=== PATIENT | female | born 1995 | race Caucasian/White ===

== ENCOUNTER 2016-04-17 11:16 | Emergency (ER) | payer OTHER ==
[~2016-04-17] VITALS: Ht 165.1 cm; Wt 61.4 kg
[~2016-04-17 11:16] MED LIST: ALBUTEROL0.09 MG/A1 IH; ANASPAZ; ANUSOL-HC SUPPO25 MG RC; ATARAX 25MG25 MG/TAB PO; BACTRIM DS 8001 TAB PO; BENTYL 10MG10 MG/CAP; BIRTH CONTROL; BIRTH CONTROL PILL; CALCIUM ANTACI500 MG; CEFTIN 250250 MG/TAB PO; CELEXA 20MG20 MG/TAB PO; DELSYM COU30 MG/5 ML PO; KLONOPIN 0.5MG0.5 MG PO; KLONOPIN WAFER0.5 MG PO; LORATADINE5 MG/5 ML PO; MICROGESTIN 1/21 TAB PO; NORCO 325 MG-51 TAB PO; PRENATAL1 TA2 PO; PREVACID 30MG30 M1 PO; PREVACID SOLUTA30 M2 PO; PROVENTIL0.09 MG/A1 IH; PULMICORT0.5 MG/21 IH; PYRIDIUM200 M1 PO; SINGULAIR; ZOFRAN ODT4 MG PO
[2016-04-17 11:23] VITALS: TEMP 99.3
[2016-04-17 12:26] LABS: BASO % 0.2 % (0.0-2.0); EOS % 0.1 % (0-4.0); GRAN # 11.5 (1.4-6.5); GRAN % 92.8 % (42.2-75.2); HEMATOCRIT 44.2 % (35.0-45.0); HEMOGLOBIN 14.9 g/dl (12.0-15.0); LYMPH # 0.3 (1.2-3.4); LYMPH % 2.3 % (20.0-51.0); MEAN CELL VOLUME 86 fl (80.0-95.0); MEAN CORPUSCULAR HEMOGLOBIN 29 pg (26.0-32.0); MEAN CORPUSCULAR HGB CONC 34 g/dl (33.0-37.0); MEAN PLATELET VOLUME 9.7 fl (7.4-10.4); MONO # 0.5 (0.1-0.6); MONO % 4.2 % (1.7-9.3); PLATELET COUNT 275 K/mm3 (130-400); RED BLOOD COUNT 5.15 M/mm3 (4.10-5.30); REDCELL DISTRIBUTION WIDTH-CV 12.6 % (11.5-14.5); WHITE BLOOD COUNT 12.4 K/mm3 (4.8-10.8)
[2016-04-17 12:33] LABS: ALBUMIN 4.7 gm/dL (3.5-5.0); C-REACTIVE PROTEIN 1.2 mg/dL (0.0-0.9); CALCIUM 9.6 mg/dL (8.4-10.2); CREATININE, serum 0.65 mg/dL (0.52-1.25); POTASSIUM 3.8 mmol/L (3.4-5.0); TOTAL PROTEIN 8.2 gm/dL (6.4-8.2)
[2016-04-17 12:41] LABS: PH 7 (5-8); URINE APPEARANCE Clear; URINE BACTERIA Rare /hpf; URINE BILIRUBIN Negative (NEGATIVE); URINE BLOOD Negative (NEGATIVE); URINE COLOR Yellow; URINE GLUCOSE Negative (NEGATIVE); URINE KETONE 2+ (NEGATIVE); URINE RBC 0-2 /hpf; URINE UROBILINOGEN Negative (NEGATIVE)
[2016-04-17] MEDS ORDERED: ZOFRAN 4MG T4 MG/TAB PO (13:13)
[2016-04-17 13:27] VITALS: BP 124/84; PULSE 80
== END 2016-04-17 13:29 | disposition home or self-care (01) ==
LOC: COL.ER 11:16
PROVIDERS: Emergency Medicine
DX: R10.31 Right lower quadrant pain (principal); R10.11 Right upper quadrant pain; R11.10 Vomiting, unspecified; R19.7 Diarrhea, unspecified
CPT/HCPCS: J2405; J7030; Q9967

== ENCOUNTER 2016-09-06 08:43 | Emergency (ER) | payer SELFPAY ==
[~2016-09-06] VITALS: Ht 172.7 cm; Wt 77.3 kg
[~2016-09-06 08:43] MED LIST changes: +ZOFRAN 4MG T4 MG/TAB PO
[2016-09-06 08:46] VITALS: BP 148/86; PULSE 90; TEMP 98.2
[2016-09-06 09:19] LABS: BASO % 0.3 % (0.0-2.0); EOS # 0.1 (0.0-0.7); EOS % 0.8 % (0-4.0); GRAN # 4.1 (1.4-6.5); GRAN % 69.8 % (42.2-75.2); HEMOGLOBIN 13.9 g/dl (12.0-15.0); LYMPH # 1.1 (1.2-3.4); LYMPH % 18.8 % (20.0-51.0); MEAN CELL VOLUME 85 fl (80.0-95.0); MEAN CORPUSCULAR HEMOGLOBIN 29 pg (26.0-32.0); MEAN CORPUSCULAR HGB CONC 35 g/dl (33.0-37.0); MEAN PLATELET VOLUME 9.5 fl (7.4-10.4); MONO # 0.6 (0.1-0.6); PLATELET COUNT 291 K/mm3 (130-400); RED BLOOD COUNT 4.72 M/mm3 (4.10-5.30); WHITE BLOOD COUNT 5.9 K/mm3 (4.8-10.8)
[2016-09-06 09:28] LABS: ADJUSTED CALCIUM 8.9 mg/dL (8.4-10.2); ALBUMIN 4.5 gm/dL (3.5-5.0); BILIRUBIN,TOTAL 0.7 mg/dL (0.0-1.0); CALCIUM 9.3 mg/dL (8.4-10.2); CREATININE, serum 0.64 mg/dL (0.52-1.25); POTASSIUM 3.6 mmol/L (3.4-5.0); TOTAL PROTEIN 7.4 gm/dL (6.4-8.2)
[2016-09-06 10:03] LABS: PH 5 (5-8); URINE APPEARANCE Hazy; URINE BACTERIA None Seen /hpf; URINE BILIRUBIN Negative (NEGATIVE); URINE BLOOD Negative (NEGATIVE); URINE COLOR Yellow; URINE GLUCOSE Negative (NEGATIVE); URINE KETONE 2+ (NEGATIVE); URINE RBC 0-2 /hpf; URINE UROBILINOGEN Negative (NEGATIVE); URINE WBC 0-2 /hpf
== END 2016-09-06 10:33 | disposition home or self-care (01) ==
LOC: COL.ER 08:43
PROVIDERS: Physician Assistant
DX: M79.652 Pain in left thigh (principal); M79.651 Pain in right thigh; F31.9 Bipolar disorder, unspecified

== ENCOUNTER 2016-09-25 12:33 | Emergency (ER) | payer SELFPAY ==
[~2016-09-25] VITALS: Ht 165.1 cm; Wt 68.2 kg
[2016-09-25 12:37] VITALS: BP 129/85; TEMP 98.8
[2016-09-25 13:21] LABS: AMPHETAMINE URINE NEGATIVE; BARBITURATES URINE NEGATIVE; BENZODIAZEPINES URINE NEGATIVE; BUPRENORPHINE URINE NEGATIVE; METHADONE URINE NEGATIVE; OPIATES URINE NEGATIVE; OXYCODONE URINE NEGATIVE; PHENCYCLIDINE URINE NEGATIVE; PROPOXYPHENE URINE NEGATIVE; THC CANNABINOIDS URINE NEGATIVE
[2016-09-25 13:35] LABS: BASO % 0.3 % (0.0-2.0); EOS % 0.6 % (0-4.0); GRAN # 4.1 (1.4-6.5); GRAN % 66.4 % (42.2-75.2); HEMATOCRIT 40.1 % (35.0-45.0); HEMOGLOBIN 13.6 g/dl (12.0-15.0); LYMPH # 1.4 (1.2-3.4); LYMPH % 22.9 % (20.0-51.0); MEAN CELL VOLUME 87 fl (80.0-95.0); MEAN CORPUSCULAR HEMOGLOBIN 29 pg (26.0-32.0); MEAN CORPUSCULAR HGB CONC 34 g/dl (33.0-37.0); MEAN PLATELET VOLUME 9.6 fl (7.4-10.4); MONO # 0.6 (0.1-0.6); MONO % 9.5 % (1.7-9.3); PLATELET COUNT 272 K/mm3 (130-400); RED BLOOD COUNT 4.62 M/mm3 (4.10-5.30); REDCELL DISTRIBUTION WIDTH-CV 12.7 % (11.5-14.5); WHITE BLOOD COUNT 6.2 K/mm3 (4.8-10.8)
[2016-09-25 13:38] LABS: ADJUSTED CALCIUM 9.1 mg/dL (8.4-10.2); ALANINE AMINOTRANSFERASE 20 U/L (9-52); ALBUMIN 4.6 gm/dL (3.5-5.0); ALKALINE PHOSPHATASE 60 U/L (50-136); ANION GAP 12 mmol/L (7-16); BILIRUBIN,TOTAL 0.7 mg/dL (0.0-1.0); BLOOD UREA NITROGEN 9 mg/dL (7-17); CALCIUM 9.6 mg/dL (8.4-10.2); CARBON DIOXIDE 24 mmol/L (22-30); CHLORIDE 104 mmol/L (98-107); CREATININE, serum 0.76 mg/dL (0.52-1.25); GLUCOSE 87 mg/dL (74-106); SODIUM 140 mmol/L (137-145); TOTAL PROTEIN 7.6 gm/dL (6.4-8.2)
[2016-09-25 13:40] LABS: ACETAMINOPHEN < 10 ug/mL (10-30); SALICYLATE < 1.0 mg/dL
[2016-09-25 16:20] VITALS: PULSE 80
== END 2016-09-25 16:21 | disposition home or self-care (01) ==
LOC: COL.ER 12:33
PROVIDERS: Nurse Practitioner
DX: F41.1 Generalized anxiety disorder (principal); R45.851 Suicidal ideations; F32.9 Major depressive disorder, single episode, unspecified; J45.909 Unspecified asthma, uncomplicated; F43.10 Post-traumatic stress disorder, unspecified

== ENCOUNTER 2016-10-27 20:50 | Emergency (ER) | payer SELFPAY ==
[~2016-10-27] VITALS: Ht 172.7 cm; Wt 59.1 kg
[2016-10-27 20:51] VITALS: TEMP 99.1
[2016-10-27 21:51] LABS: BASO % 0.3 % (0.0-2.0); EOS % 0.7 % (0-4.0); GRAN # 3.6 (1.4-6.5); GRAN % 60.8 % (42.2-75.2); HEMATOCRIT 38.9 % (35.0-45.0); HEMOGLOBIN 13.3 g/dl (12.0-15.0); LYMPH # 1.8 (1.2-3.4); LYMPH % 30.1 % (20.0-51.0); MEAN CELL VOLUME 87 fl (80.0-95.0); MEAN CORPUSCULAR HEMOGLOBIN 30 pg (26.0-32.0); MEAN CORPUSCULAR HGB CONC 34 g/dl (33.0-37.0); MEAN PLATELET VOLUME 9.5 fl (7.4-10.4); MONO # 0.5 (0.1-0.6); MONO % 7.9 % (1.7-9.3); PLATELET COUNT 287 K/mm3 (130-400); RED BLOOD COUNT 4.48 M/mm3 (4.10-5.30); REDCELL DISTRIBUTION WIDTH-CV 12.6 % (11.5-14.5)
[2016-10-27 21:54] LABS: PH 5 (5-8); SQUAMOUS EPITHELIAL 0-2 /hpf; URINE APPEARANCE Hazy; URINE BACTERIA Rare /hpf; URINE BILIRUBIN Negative (NEGATIVE); URINE BLOOD Negative (NEGATIVE); URINE COLOR Yellow; URINE GLUCOSE Negative (NEGATIVE); URINE KETONE Negative (NEGATIVE); URINE RBC 0-2 /hpf; URINE UROBILINOGEN Negative (NEGATIVE)
[2016-10-27 21:59] LABS: AMPHETAMINE URINE NEGATIVE; BARBITURATES URINE NEGATIVE; BENZODIAZEPINES URINE NEGATIVE; BUPRENORPHINE URINE NEGATIVE; METHADONE URINE NEGATIVE; OPIATES URINE NEGATIVE; OXYCODONE URINE NEGATIVE; PHENCYCLIDINE URINE NEGATIVE; PROPOXYPHENE URINE NEGATIVE; THC CANNABINOIDS URINE NEGATIVE
[2016-10-27 22:02] LABS: ADJUSTED CALCIUM 8.9 mg/dL (8.4-10.2); ALANINE AMINOTRANSFERASE 26 U/L (9-52); ALBUMIN 4.7 gm/dL (3.5-5.0); ALKALINE PHOSPHATASE 53 U/L (50-136); BILIRUBIN,TOTAL 0.5 mg/dL (0.0-1.0); BLOOD UREA NITROGEN 7 mg/dL (7-17); CALCIUM 9.5 mg/dL (8.4-10.2); CARBON DIOXIDE 23 mmol/L (22-30); CHLORIDE 105 mmol/L (98-107); CREATININE, serum 0.77 mg/dL (0.52-1.25); GLUCOSE 90 mg/dL (74-106); POTASSIUM 3.8 mmol/L (3.4-5.0); TOTAL PROTEIN 7.5 gm/dL (6.4-8.2)
[2016-10-27 22:03] LABS: ACETAMINOPHEN < 10 ug/mL (10-30); SALICYLATE < 1.0 mg/dL; SODIUM 133 mmol/L (137-145)
[2016-10-27 22:04] LABS: ANION GAP 5 mmol/L (7-16)
[2016-10-28 00:21] VITALS: BP 122/76; PULSE 92
== END 2016-10-28 00:21 | disposition home or self-care (01) ==
LOC: COL.ER 20:50
PROVIDERS: Emergency Medicine
DX: F32.9 Major depressive disorder, single episode, unspecified (principal); F41.9 Anxiety disorder, unspecified; R45.851 Suicidal ideations

== ENCOUNTER 2016-11-20 15:57 | Emergency (ER) | payer SELFPAY ==
[~2016-11-20] VITALS: Ht 165.1 cm; Wt 73.7 kg
[2016-11-20 16:01] VITALS: TEMP 98.6
[2016-11-20 17:55] LABS: BASO % 0.2 % (0.0-2.0); EOS # 0.1 (0.0-0.7); EOS % 0.7 % (0-4.0); GRAN # 5.7 (1.4-6.5); GRAN % 70.7 % (42.2-75.2); HEMATOCRIT 40.4 % (35.0-45.0); HEMOGLOBIN 13.5 g/dl (12.0-15.0); LYMPH # 1.7 (1.2-3.4); LYMPH % 20.5 % (20.0-51.0); MEAN CELL VOLUME 88 fl (80.0-95.0); MEAN CORPUSCULAR HEMOGLOBIN 30 pg (26.0-32.0); MEAN CORPUSCULAR HGB CONC 33 g/dl (33.0-37.0); MEAN PLATELET VOLUME 9.6 fl (7.4-10.4); MONO # 0.6 (0.1-0.6); MONO % 7.7 % (1.7-9.3); PLATELET COUNT 293 K/mm3 (130-400); RED BLOOD COUNT 4.58 M/mm3 (4.10-5.30); REDCELL DISTRIBUTION WIDTH-CV 12.7 % (11.5-14.5); WHITE BLOOD COUNT 8.1 K/mm3 (4.8-10.8)
[2016-11-20 17:59] LABS: PH 5 (5-8); SQUAMOUS EPITHELIAL 0-2 /hpf; URINE APPEARANCE Clear; URINE BACTERIA None Seen /hpf; URINE BILIRUBIN Negative (NEGATIVE); URINE BLOOD Negative (NEGATIVE); URINE COLOR Yellow; URINE GLUCOSE Negative (NEGATIVE); URINE KETONE Negative (NEGATIVE); URINE RBC 0-2 /hpf; URINE UROBILINOGEN Negative (NEGATIVE); URINE WBC 0-2 /hpf
[2016-11-20 18:19] LABS: ADJUSTED CALCIUM 8.8 mg/dL (8.4-10.2); ALANINE AMINOTRANSFERASE 25 U/L (9-52); ALBUMIN 4.5 gm/dL (3.5-5.0); ALKALINE PHOSPHATASE 49 U/L (50-136); ANION GAP 10 mmol/L (7-16); BILIRUBIN,TOTAL 0.5 mg/dL (0.0-1.0); BLOOD UREA NITROGEN 7 mg/dL (7-17); CALCIUM 9.2 mg/dL (8.4-10.2); CARBON DIOXIDE 26 mmol/L (22-30); CHLORIDE 104 mmol/L (98-107); CREATININE, serum 0.73 mg/dL (0.52-1.25); GLUCOSE 67 mg/dL (74-106); POTASSIUM 3.5 mmol/L (3.4-5.0); SODIUM 140 mmol/L (137-145); TOTAL PROTEIN 7.4 gm/dL (6.4-8.2)
[2016-11-20 18:20] LABS: C-REACTIVE PROTEIN < 0.5 mg/dL (0.0-0.9)
[2016-11-20 18:50] VITALS: BP 122/68; PULSE 80
== END 2016-11-20 18:50 | disposition home or self-care (01) ==
LOC: COL.ER 15:57
PROVIDERS: Nurse Practitioner
DX: R10.30 Lower abdominal pain, unspecified (principal)

== ENCOUNTER 2016-12-07 01:37 | Emergency (ER) | payer SELFPAY ==
[~2016-12-07] VITALS: Ht 165.1 cm; Wt 74.1 kg
[2016-12-07 01:39] VITALS: BP 137/79; TEMP 98.1
[2016-12-07 02:36] LABS: PH 7 (5-8); URINE APPEARANCE Cloudy; URINE BACTERIA Rare /hpf; URINE BILIRUBIN Negative (NEGATIVE); URINE BLOOD 2+ (NEGATIVE); URINE COLOR Yellow; URINE GLUCOSE Negative (NEGATIVE); URINE KETONE Negative (NEGATIVE); URINE RBC 20-50 /hpf; URINE UROBILINOGEN Negative (NEGATIVE)
[2016-12-07 02:38] LABS: BASO % 0.3 % (0.0-2.0); EOS # 0.1 (0.0-0.7); GRAN # 6.9 (1.4-6.5); GRAN % 67.1 % (42.2-75.2); HEMATOCRIT 39.9 % (35.0-45.0); HEMOGLOBIN 13.5 g/dl (12.0-15.0); LYMPH # 2.5 (1.2-3.4); LYMPH % 24.5 % (20.0-51.0); MEAN CELL VOLUME 88 fl (80.0-95.0); MEAN CORPUSCULAR HEMOGLOBIN 30 pg (26.0-32.0); MEAN CORPUSCULAR HGB CONC 34 g/dl (33.0-37.0); MEAN PLATELET VOLUME 9.7 fl (7.4-10.4); MONO # 0.7 (0.1-0.6); MONO % 6.9 % (1.7-9.3); PLATELET COUNT 283 K/mm3 (130-400); RED BLOOD COUNT 4.56 M/mm3 (4.10-5.30); REDCELL DISTRIBUTION WIDTH-CV 12.3 % (11.5-14.5); WHITE BLOOD COUNT 10.2 K/mm3 (4.8-10.8)
[2016-12-07 02:51] LABS: ADJUSTED CALCIUM 9.2 mg/dL (8.4-10.2); ALBUMIN 4.3 gm/dL (3.5-5.0); BILIRUBIN,TOTAL 0.3 mg/dL (0.0-1.0); CALCIUM 9.4 mg/dL (8.4-10.2); CREATININE, serum 0.78 mg/dL (0.52-1.25); POTASSIUM 3.5 mmol/L (3.4-5.0); TOTAL PROTEIN 7.3 gm/dL (6.4-8.2)
[2016-12-07 02:55] LABS: URINE WBC 20-50 /hpf
[2016-12-07] MEDS ORDERED: CEFTIN 250250 MG/TAB PO (03:06)
[2016-12-07 04:37] VITALS: PULSE 87
== END 2016-12-07 04:40 | disposition home or self-care (01) ==
LOC: COL.ER 01:37
PROVIDERS: Nurse Practitioner
DX: N39.0 Urinary tract infection, site not specified (principal); B95.7 Other staphylococcus as the cause of diseases classified elsewhere; F31.9 Bipolar disorder, unspecified; J45.909 Unspecified asthma, uncomplicated; F12.10 Cannabis abuse, uncomplicated; F17.210 Nicotine dependence, cigarettes, uncomplicated; Z98.890 Other specified postprocedural states
CPT/HCPCS: J0696; J1885; J2405; J7030

== ENCOUNTER 2017-02-25 15:07 | Emergency (ER) | payer MEDICAID ==
[~2017-02-25] VITALS: Ht 165.1 cm; Wt 65.6 kg
[~2017-02-25 15:07] MED LIST changes: +FLAGYL500 MG PO; +PHENERGAN 25 TA25 MG PO; +PRENATAL
[2017-02-25 15:09] VITALS: BP 138/68; TEMP 98.2
[2017-02-25 16:02] LABS: COLLECTION METHOD CLEAN CATCH
[2017-02-25 16:12] LABS: BASO % 0.2 % (0.0-2.0); EOS % 0.2 % (0-4.0); GRAN # 7.7 (1.4-6.5); GRAN % 80.2 % (42.2-75.2); HEMATOCRIT 42.9 % (37.0-47.0); LYMPH # 1.4 (1.2-3.4); LYMPH % 14.1 % (20.0-51.0); MEAN CELL VOLUME 86 fl (80.0-100.0); MEAN CORPUSCULAR HEMOGLOBIN 30 pg (27.0-31.0); MEAN CORPUSCULAR HGB CONC 35 g/dl (33.0-37.0); MEAN PLATELET VOLUME 10.1 fl (7.4-10.4); MONO # 0.5 (0.1-0.6); MONO % 4.9 % (1.7-9.3); MUCOUS Present /lpf; PH 5 (5-8); PLATELET COUNT 221 K/mm3 (130-400); RED BLOOD COUNT 5.02 M/mm3 (4.10-5.30); SQUAMOUS EPITHELIAL 0-2 /hpf; URINE APPEARANCE Clear; URINE BACTERIA Rare /hpf; URINE BILIRUBIN Negative (NEGATIVE); URINE BLOOD Negative (NEGATIVE); URINE COLOR Yellow; URINE GLUCOSE Negative (NEGATIVE); URINE KETONE 2+ (NEGATIVE); URINE LEUKOCYTE ESTERASE Negative (NEGATIVE); URINE PROTEIN(semi-quant) 1+ (NEGATIVE); URINE WBC None Seen /hpf; WHITE BLOOD COUNT 9.6 K/mm3 (4.8-10.8)
[2017-02-25 17:12] LABS: ADJUSTED CALCIUM 9.7 mg/dL (8.4-10.2); ALBUMIN 4.8 gm/dL (3.5-5.0); BILIRUBIN,TOTAL 0.8 mg/dL (0.0-1.0); CALCIUM 10.3 mg/dL (8.4-10.2); CREATININE, serum 0.59 mg/dL (0.52-1.25); POTASSIUM 3.7 mmol/L (3.4-5.0); TOTAL PROTEIN 8.4 gm/dL (6.4-8.2)
[2017-02-25] MEDS ORDERED: ZOFRAN ODT4 MG PO (17:42)
[2017-02-25 18:39] VITALS: PULSE 84
== END 2017-02-25 18:42 | disposition home or self-care (01) ==
LOC: COL.ER 15:07
PROVIDERS: Emergency Medicine
DX: O21.0 Mild hyperemesis gravidarum (principal); O99.512 Diseases of the respiratory system complicating pregnancy, second trimester; J45.909 Unspecified asthma, uncomplicated; Z3A.14 14 weeks gestation of pregnancy
CPT/HCPCS: J2765; J7030

== ENCOUNTER 2017-06-08 21:34 | Emergency (ER) | payer MEDICAID ==
[~2017-06-08] VITALS: Ht 165.1 cm; Wt 75.0 kg
[2017-06-08 21:39] VITALS: TEMP 98.1
[2017-06-08 22:38] LABS: BASO % 0.2 % (0.0-2.0); EOS # 0.1 (0.0-0.7); EOS % 0.8 % (0-4.0); GRAN # 6.7 (1.4-6.5); GRAN % 68.1 % (42.2-75.2); LYMPH # 2.4 (1.2-3.4); LYMPH % 24.3 % (20.0-51.0); MEAN CELL VOLUME 88 fl (80.0-100.0); MEAN CORPUSCULAR HGB CONC 35 g/dl (33.0-37.0); MEAN PLATELET VOLUME 10.1 fl (7.4-10.4); MONO # 0.6 (0.1-0.6); MONO % 6.1 % (1.7-9.3); PLATELET COUNT 257 K/mm3 (130-400); RED BLOOD COUNT 3.71 M/mm3 (4.10-5.30); REDCELL DISTRIBUTION WIDTH-CV 12.7 % (11.5-14.5)
[2017-06-08 22:48] LABS: ALBUMIN 3.6 gm/dL (3.5-5.0); BILIRUBIN,TOTAL 0.1 mg/dL (0.0-1.0); CALCIUM 8.8 mg/dL (8.4-10.2); CREATININE, serum 0.51 mg/dL (0.52-1.25); POTASSIUM 3.4 mmol/L (3.4-5.0); TOTAL PROTEIN 6.7 gm/dL (6.4-8.2)
[2017-06-08 22:58] LABS: HEMATOCRIT 32.5 % (37.0-47.0); HEMOGLOBIN 11.3 g/dl (12.5-16.0); MEAN CORPUSCULAR HEMOGLOBIN 30 pg (27.0-31.0)
[2017-06-08 23:27] LABS: COLLECTION METHOD CLEAN CATCH
[2017-06-08 23:37] LABS: MUCOUS Present /lpf; PH 6 (5-8); SQUAMOUS EPITHELIAL 0-2 /hpf; URINE APPEARANCE Clear; URINE BACTERIA None Seen /hpf; URINE BILIRUBIN Negative (NEGATIVE); URINE BLOOD Negative (NEGATIVE); URINE COLOR Yellow; URINE GLUCOSE Negative (NEGATIVE); URINE KETONE Negative (NEGATIVE); URINE LEUKOCYTE ESTERASE Negative (NEGATIVE); URINE NITRATE Negative (NEGATIVE); URINE PROTEIN(semi-quant) Negative (NEGATIVE); URINE RBC 0-2 /hpf; URINE UROBILINOGEN Negative (NEGATIVE)
[2017-06-09 00:08] VITALS: BP 117/62; PULSE 82
== END 2017-06-09 00:10 | disposition home or self-care (01) ==
LOC: COL.ER 21:34
PROVIDERS: Physician Assistant
DX: O99.513 Diseases of the respiratory system complicating pregnancy, third trimester (principal); J45.901 Unspecified asthma with (acute) exacerbation; J06.9 Acute upper respiratory infection, unspecified; Z3A.28 28 weeks gestation of pregnancy; Z87.891 Personal history of nicotine dependence

== ENCOUNTER 2017-07-16 03:19 | Emergency (ER) | payer MEDICAID ==
[~2017-07-16] VITALS: Ht 165.1 cm; Wt 74.5 kg
[2017-07-16 03:23] VITALS: BP 136/82; TEMP 98
[2017-07-16 03:48] LABS: BASO % 0.1 % (0.0-2.0); EOS # 0.1 (0.0-0.7); EOS % 0.5 % (0-4.0); GRAN # 8.2 (1.4-6.5); GRAN % 76.4 % (42.2-75.2); LYMPH # 1.9 (1.2-3.4); LYMPH % 17.4 % (20.0-51.0); MEAN CELL VOLUME 85 fl (80.0-100.0); MEAN CORPUSCULAR HEMOGLOBIN 29 pg (27.0-31.0); MEAN CORPUSCULAR HGB CONC 35 g/dl (33.0-37.0); MEAN PLATELET VOLUME 10.2 fl (7.4-10.4); MONO # 0.6 (0.1-0.6); MONO % 5.2 % (1.7-9.3); PLATELET COUNT 298 K/mm3 (130-400)
[2017-07-16 03:52] LABS: HEMATOCRIT 34.8 % (37.0-47.0)
[2017-07-16 03:54] LABS: PROTHROMBIN TIME 11.7 SECONDS (9.7-12.8)
[2017-07-16 03:57] LABS: CALCIUM 9.1 mg/dL (8.4-10.2); CREATININE, serum 0.52 mg/dL (0.52-1.25); POTASSIUM 3.8 mmol/L (3.4-5.0)
[2017-07-16 04:28] LABS: COLLECTION METHOD CLEAN CATCH
[2017-07-16 04:34] LABS: MUCOUS Present /lpf; PH 6 (5-8); URINE APPEARANCE Hazy; URINE BACTERIA None Seen /hpf; URINE BILIRUBIN Negative (NEGATIVE); URINE BLOOD Negative (NEGATIVE); URINE COLOR Yellow; URINE GLUCOSE Negative (NEGATIVE); URINE KETONE Trace (NEGATIVE); URINE LEUKOCYTE ESTERASE 2+ (NEGATIVE); URINE NITRATE Negative (NEGATIVE); URINE PROTEIN(semi-quant) Negative (NEGATIVE); URINE UROBILINOGEN Negative (NEGATIVE)
[2017-07-16] MEDS ORDERED: CEFTIN500 MG PO (04:41)
[2017-07-16] MEDS ORDERED: PHENERGAN 25 TA25 MG PO (05:37)
[2017-07-16 05:40] VITALS: PULSE 85
== END 2017-07-16 05:39 | disposition home or self-care (01) ==
LOC: COL.ER 03:19
PROVIDERS: Emergency Medicine
DX: O23.43 Unspecified infection of urinary tract in pregnancy, third trimester (principal); O99.89 Other specified diseases and conditions complicating pregnancy, childbirth and the puerperium; M79.661 Pain in right lower leg; Z3A.34 34 weeks gestation of pregnancy
CPT/HCPCS: J0696; J2405

== ENCOUNTER 2017-08-18 00:35 | Outpatient (CLI) | payer MEDICAID ==
[~2017-08-18] VITALS: Ht 162.6 cm; Wt 78.6 kg
[~2017-08-18 00:35] MED LIST changes: +CEFTIN500 MG PO
[2017-08-18 00:53] VITALS: BP 127/73; PULSE 78; TEMP 98.5
[2017-08-18 01:15] VITALS: BP 127/73; PULSE 78; TEMP 98.3
== END 2017-08-18 03:20 | disposition home or self-care (01) ==
LOC: LDRO 00:35
DX: O62.9 Abnormality of forces of labor, unspecified (principal); Z3A.38 38 weeks gestation of pregnancy

== ENCOUNTER 2017-08-18 21:51 | Outpatient (CLI) | payer MEDICAID ==
[~2017-08-18] VITALS: Ht 162.6 cm; Wt 78.2 kg
[2017-08-18 22:10] VITALS: BP 142/77; PULSE 75; TEMP 98.2
[2017-08-18 22:21] VITALS: BP 142/77; PULSE 75; TEMP 98.2
[2017-08-18 22:25] VITALS: BP 137/76; PULSE 79
== END 2017-08-18 23:00 | disposition home or self-care (01) ==
LOC: LDRO 21:51
DX: O36.8130 Decreased fetal movements, third trimester, not applicable or unspecified (principal); Z3A.39 39 weeks gestation of pregnancy

== ENCOUNTER 2017-08-19 23:06 | Outpatient (CLI) | payer MEDICAID ==
[~2017-08-19] VITALS: Ht 162.6 cm; Wt 78.6 kg
[2017-08-19 23:45] VITALS: BP 142/87; PULSE 82; TEMP 97.6
[2017-08-20 00:10] VITALS: BP 131/90; PULSE 82
== END 2017-08-20 00:25 | disposition home or self-care (01) ==
LOC: LDRO 23:06
DX: O62.9 Abnormality of forces of labor, unspecified (principal); O99.89 Other specified diseases and conditions complicating pregnancy, childbirth and the puerperium; R10.9 Unspecified abdominal pain; Z3A.39 39 weeks gestation of pregnancy

== ENCOUNTER 2017-08-21 11:00 | Inpatient (IN) | payer MEDICAID ==
[~2017-08-21] VITALS: Ht 165.1 cm; Wt 80.9 kg
[2017-08-21] VITALS (36 sets, daily range): BP systolic 128–155; BP diastolic 61–91; PULSE 70–108; TEMP 98.5–99.6
[2017-08-21 11:53] LABS: BASO % 0.1 % (0.0-2.0); EOS % 0.2 % (0-4.0); GRAN # 12.8 (1.4-6.5); GRAN % 85.7 % (42.2-75.2); HEMOGLOBIN 11.9 g/dl (12.5-16.0); LYMPH # 1.5 (1.2-3.4); LYMPH % 9.8 % (20.0-51.0); MEAN CELL VOLUME 85 fl (80.0-100.0); MEAN CORPUSCULAR HEMOGLOBIN 29 pg (27.0-31.0); MEAN CORPUSCULAR HGB CONC 34 g/dl (33.0-37.0); MEAN PLATELET VOLUME 11.3 fl (7.4-10.4); MONO # 0.5 (0.1-0.6); MONO % 3.6 % (1.7-9.3); PLATELET COUNT 284 K/mm3 (130-400); RED BLOOD COUNT 4.09 M/mm3 (4.10-5.30); REDCELL DISTRIBUTION WIDTH-CV 13.2 % (11.5-14.5)
[2017-08-21 12:07] LABS: HEMATOCRIT 34.9 % (37.0-47.0)
[2017-08-21 14:14] LABS: TRICYCLIC ANTIDEPRESS URINE NEGATIVE
[2017-08-22 01:15] VITALS: BP 106/48; PULSE 76; TEMP 98.3
[2017-08-22 05:15] VITALS: BP 110/57; PULSE 68; TEMP 98.5
[2017-08-22 09:51] VITALS: BP 122/69; PULSE 79; TEMP 97.7
[2017-08-22 16:39] VITALS: BP 126/68; PULSE 72; TEMP 97.6
[2017-08-22 20:00] VITALS: BP 138/78; PULSE 78; TEMP 98.2
[2017-08-23 08:44] VITALS: BP 105/57; PULSE 82; TEMP 97.8
[2017-08-23] MEDS ORDERED: IBU600 MG PO (09:35)
[2017-08-23] MEDS ORDERED: ROXICODONE 55 MG/TAB PO (09:37)
== END 2017-08-23 11:10 | disposition home or self-care (01) | DRG 775 ==
LOC: LDRO 11:00 → OB 11:14 → LDR 11:14 → OB 20:46
PROVIDERS: Obstetrics & Gynecology
PROC: 10D07Z6 Extraction of Products of Conception, Vacuum, Via Natural or Artificial Opening (ICD-10-PCS; principal; 2017-08-21)
PROC: 0KQM0ZZ Repair Perineum Muscle, Open Approach (ICD-10-PCS; 2017-08-21)
DX: O76 Abnormality in fetal heart rate and rhythm complicating labor and delivery (principal); Z3A.39 39 weeks gestation of pregnancy; Z37.0 Single live birth; O70.1 Second degree perineal laceration during delivery
CPT/HCPCS: J1200; J2590; J2795; J7120

== ENCOUNTER 2017-08-26 01:09 | Emergency (ER) | payer MEDICAID ==
[~2017-08-26] VITALS: Ht 165.1 cm; Wt 79.1 kg
[~2017-08-26 01:09] MED LIST changes: +IBU600 MG PO; +ROXICODONE 55 MG/TAB PO
[2017-08-26 01:13] VITALS: TEMP 98.4
[2017-08-26] MEDS ORDERED: CEPHALEXIN500 M1 PO (02:51)
[2017-08-26] MEDS ORDERED: OXY IR5 MG PO (02:51)
[2017-08-26 02:58] VITALS: BP 104/68; PULSE 84
== END 2017-08-26 03:01 | disposition home or self-care (01) ==
LOC: COL.ER 01:09
DX: O90.89 Other complications of the puerperium, not elsewhere classified (principal); G89.18 Other acute postprocedural pain; R10.2 Pelvic and perineal pain; Z98.890 Other specified postprocedural states
CPT/HCPCS: J1170

== ENCOUNTER 2018-01-25 23:43 | Emergency (ER) | payer SELFPAY ==
[~2018-01-25] VITALS: Ht 165.1 cm; Wt 75.0 kg
[~2018-01-25 23:43] MED LIST changes: +CEPHALEXIN500 M1 PO; +OXY IR5 MG PO
[2018-01-26 00:30] LABS: COLLECTION METHOD CLEAN CATCH
[2018-01-26 00:39] LABS: AMORPHOUS CRYSTAL Present /uL; MUCOUS Present /lpf; PH 8 (5-8); SQUAMOUS EPITHELIAL None Seen /hpf; URINE APPEARANCE Cloudy; URINE BACTERIA Rare /hpf; URINE BILIRUBIN Negative (NEGATIVE); URINE BLOOD Negative (NEGATIVE); URINE COLOR Yellow; URINE GLUCOSE Negative (NEGATIVE); URINE KETONE Negative (NEGATIVE); URINE LEUKOCYTE ESTERASE Negative (NEGATIVE); URINE NITRATE Negative (NEGATIVE); URINE PROTEIN(semi-quant) Negative (NEGATIVE); URINE RBC None Seen /hpf; URINE UROBILINOGEN Negative (NEGATIVE)
[2018-01-26 01:50] VITALS: BP 115/60; PULSE 98; TEMP 100.7
[2018-01-27] MEDS ORDERED: CEFTIN500 MG PO (21:52)
== END 2018-01-26 01:15 | disposition home or self-care (01) ==
LOC: COL.ER 23:43
PROVIDERS: Emergency Medicine
DX: J02.9 Acute pharyngitis, unspecified (principal); J06.9 Acute upper respiratory infection, unspecified; F31.9 Bipolar disorder, unspecified; J45.909 Unspecified asthma, uncomplicated; F43.10 Post-traumatic stress disorder, unspecified; F41.9 Anxiety disorder, unspecified; Z87.891 Personal history of nicotine dependence
CPT/HCPCS: J0561; J1885

== ENCOUNTER 2018-01-27 20:06 | Emergency (ER) | payer SELFPAY ==
[~2018-01-27] VITALS: Ht 165.1 cm; Wt 75.0 kg
[2018-01-27 20:10] VITALS: BP 127/61; TEMP 98.7
[2018-01-27] MEDS ORDERED: CEFTIN500 MG PO (21:52)
[2018-01-27 22:05] VITALS: PULSE 86
== END 2018-01-27 22:05 | disposition home or self-care (01) ==
LOC: COL.ER 20:06
DX: H66.92 Otitis media, unspecified, left ear (principal); J06.9 Acute upper respiratory infection, unspecified; F17.210 Nicotine dependence, cigarettes, uncomplicated

== ENCOUNTER 2018-05-23 17:53 | Emergency (ER) | payer SELFPAY ==
[~2018-05-23] VITALS: Ht 165.1 cm; Wt 72.7 kg
[2018-05-23 18:05] VITALS: TEMP 99.2
[2018-05-23 19:07] LABS: BASO % 0.4 % (0.0-2.0); COLLECTION METHOD CLEAN CATCH; EOS # 0.1 (0.0-0.7); EOS % 0.7 % (0-4.0); GRAN # 4.8 (1.4-6.5); GRAN % 68.1 % (42.2-75.2); HEMATOCRIT 42.9 % (37.0-47.0); HEMOGLOBIN 14.1 g/dl (12.5-16.0); LYMPH # 1.7 (1.2-3.4); LYMPH % 24.5 % (20.0-51.0); MEAN CELL VOLUME 82 fl (80.0-100.0); MEAN CORPUSCULAR HEMOGLOBIN 27 pg (27.0-31.0); MEAN CORPUSCULAR HGB CONC 33 g/dl (33.0-37.0); MEAN PLATELET VOLUME 10.1 fl (7.4-10.4); MONO # 0.4 (0.1-0.6); MONO % 6.2 % (1.7-9.3); PLATELET COUNT 285 K/mm3 (130-400); RED BLOOD COUNT 5.23 M/mm3 (4.10-5.30)
[2018-05-23 19:19] LABS: MUCOUS Present /lpf; PH 5 (5-8); SQUAMOUS EPITHELIAL 0-2 /hpf; URINE APPEARANCE Clear; URINE BACTERIA None Seen /hpf; URINE BILIRUBIN Negative (NEGATIVE); URINE BLOOD Negative (NEGATIVE); URINE COLOR Yellow; URINE GLUCOSE Negative (NEGATIVE); URINE KETONE Negative (NEGATIVE); URINE LEUKOCYTE ESTERASE Negative (NEGATIVE); URINE NITRATE Negative (NEGATIVE); URINE PROTEIN(semi-quant) Negative (NEGATIVE); URINE RBC 0-2 /hpf; URINE UROBILINOGEN Negative (NEGATIVE)
[2018-05-23 19:21] LABS: ALANINE AMINOTRANSFERASE 27 U/L (9-52); ALBUMIN 4.8 gm/dL (3.5-5.0); ALKALINE PHOSPHATASE 72 U/L (50-136); ANION GAP 11 mmol/L (7-16); AST,SGOT 36 U/L (15-37); BILIRUBIN,TOTAL 0.5 mg/dL (0.0-1.0); BLOOD UREA NITROGEN 8 mg/dL (7-17); CALCIUM 9.5 mg/dL (8.4-10.2); CARBON DIOXIDE 25 mmol/L (22-30); CHLORIDE 103 mmol/L (98-107); CREATININE, serum 0.73 mg/dL (0.52-1.25); GLUCOSE 93 mg/dL (74-106); POTASSIUM 3.4 mmol/L (3.4-5.0); SODIUM 138 mmol/L (137-145); TOTAL PROTEIN 8.4 gm/dL (6.4-8.2)
[2018-05-23 19:23] LABS: ACETAMINOPHEN < 10 ug/mL (10-30); ALCOHOL(ethanol),MEDICAL < 10 mg/dL; SALICYLATE < 1.0 mg/dL
[2018-05-23 19:24] LABS: TRICYCLIC ANTIDEPRESS URINE NEGATIVE
[2018-05-24 00:22] VITALS: BP 115/50; PULSE 89
== END 2018-05-24 00:22 | disposition home or self-care (01) ==
LOC: COL.ER 17:53
PROVIDERS: Nurse Practitioner
DX: F31.9 Bipolar disorder, unspecified (principal); F17.210 Nicotine dependence, cigarettes, uncomplicated; F12.10 Cannabis abuse, uncomplicated; Z88.6 Allergy status to analgesic agent; Z91.5 Personal history of self-harm

== ENCOUNTER 2018-12-08 15:10 | Emergency (ER) | payer MEDICAID ==
[~2018-12-08] VITALS: Ht 165.1 cm; Wt 65.9 kg
[2018-12-08 15:15] VITALS: BP 143/78; TEMP 98.9
[2018-12-08 15:33] LABS: COLLECTION METHOD CLEAN CATCH
[2018-12-08 16:00] LABS: MUCOUS Present /lpf; PH 6 (5-8); URINE APPEARANCE Clear; URINE BACTERIA Rare /hpf; URINE BILIRUBIN Negative (NEGATIVE); URINE BLOOD Negative (NEGATIVE); URINE COLOR Yellow; URINE GLUCOSE Negative (NEGATIVE); URINE KETONE Negative (NEGATIVE); URINE LEUKOCYTE ESTERASE Trace (NEGATIVE); URINE NITRATE Negative (NEGATIVE); URINE PROTEIN(semi-quant) Negative (NEGATIVE); URINE RBC 0-2 /hpf; URINE UROBILINOGEN Negative (NEGATIVE)
[2018-12-08] MEDS ORDERED: ZOFRAN ODT4 MG PO (17:08)
[2018-12-08 17:40] VITALS: PULSE 97
== END 2018-12-08 17:52 | disposition home or self-care (01) ==
LOC: COL.ER 15:10
PROVIDERS: Family Medicine
DX: O21.9 Vomiting of pregnancy, unspecified (principal); O26.891 Other specified pregnancy related conditions, first trimester; R10.13 Epigastric pain; Z88.6 Allergy status to analgesic agent; Z87.891 Personal history of nicotine dependence; Z3A.10 10 weeks gestation of pregnancy
CPT/HCPCS: J2405; J7030

== ENCOUNTER 2019-01-17 17:29 | Emergency (ER) | payer MEDICAID ==
[~2019-01-17] VITALS: Ht 165.1 cm; Wt 66.4 kg
[2019-01-17 18:03] VITALS: BP 130/72; TEMP 98.7
[2019-01-17 20:44] LABS: COLLECTION METHOD CLEAN CATCH
[2019-01-17 20:46] LABS: BASO % 0.1 % (0.0-2.0); EOS % 0.1 % (0-4.0); GRAN # 7.2 (1.4-6.5); GRAN % 86.7 % (42.2-75.2); HEMATOCRIT 38.2 % (37.0-47.0); HEMOGLOBIN 13.1 g/dl (12.5-16.0); LYMPH # 0.8 (1.2-3.4); LYMPH % 9.1 % (20.0-51.0); MEAN CELL VOLUME 86 fl (80.0-100.0); MEAN CORPUSCULAR HEMOGLOBIN 30 pg (27.0-31.0); MEAN CORPUSCULAR HGB CONC 34 g/dl (33.0-37.0); MEAN PLATELET VOLUME 9.7 fl (7.4-10.4); MONO # 0.3 (0.1-0.6); MONO % 3.8 % (1.7-9.3); PLATELET COUNT 259 K/mm3 (130-400); RED BLOOD COUNT 4.43 M/mm3 (4.10-5.30); REDCELL DISTRIBUTION WIDTH-CV 13.4 % (11.5-14.5)
[2019-01-17 20:49] LABS: MUCOUS Present /lpf; PH 5 (5-8); URINE APPEARANCE Clear; URINE BACTERIA None Seen /hpf; URINE BILIRUBIN Negative (NEGATIVE); URINE BLOOD Negative (NEGATIVE); URINE COLOR Yellow; URINE GLUCOSE Negative (NEGATIVE); URINE KETONE 2+ (NEGATIVE); URINE LEUKOCYTE ESTERASE Negative (NEGATIVE); URINE NITRATE Negative (NEGATIVE); URINE PROTEIN(semi-quant) Negative (NEGATIVE); URINE RBC None Seen /hpf; URINE UROBILINOGEN Negative (NEGATIVE)
[2019-01-17 21:00] LABS: ALBUMIN 4.1 gm/dL (3.5-5.0); BILIRUBIN,TOTAL 0.4 mg/dL (0.0-1.0); C-REACTIVE PROTEIN 1.7 mg/dL (0.0-0.9); CALCIUM 9.3 mg/dL (8.4-10.2); CREATININE, serum 0.55 (0.52-1.25); POTASSIUM 3.5 mmol/L (3.4-5.0); TOTAL PROTEIN 7.4 gm/dL (6.4-8.2)
[2019-01-17 22:15] VITALS: PULSE 101
== END 2019-01-17 22:15 | disposition home or self-care (01) ==
LOC: COL.ER 17:29
PROVIDERS: Nurse Practitioner
DX: R19.7 Diarrhea, unspecified (principal); R11.2 Nausea with vomiting, unspecified; F31.9 Bipolar disorder, unspecified; F41.9 Anxiety disorder, unspecified; J45.909 Unspecified asthma, uncomplicated; F43.10 Post-traumatic stress disorder, unspecified
CPT/HCPCS: J2550; J7030

== ENCOUNTER 2019-03-31 21:23 | Outpatient (CLI) | payer MEDICAID ==
[~2019-03-31] VITALS: Ht 165.1 cm; Wt 71.4 kg
[2019-03-31] MEDS ORDERED: PRENATAL MVI (21:55)
[2019-03-31 22:00] VITALS: BP 130/66; PULSE 81; TEMP 98.2
--- NOTE | 2019-03-31 22:30 | NUR ---
2129- Patient from ED by wheelchair for complaints of RLQ pain since 1729. Patient states she did lots of heavy lifting today and moving mattresses. Patient states she also lifted her 2-year old alot today. Patient denies bleeding, spotting, or leaking of fluid. Patient states baby has been moving normally for her. Patient into restroom to void and provide urine sample due to HX drug use. 2149- EFM and TOCO on and tracing. FHR and movements audible. 2209- See Physician Notification. 2217- EFM and TOCO off. Discharge instructions explained and signed. Questions encouraged and answered. Dismissal note for work provided. 0- Patient and FOB ambulatory off unit.
== END 2019-03-31 22:40 | disposition home or self-care (01) ==
LOC: COL.ER 21:23 → LDRO 21:23 → LDR 21:30 → EDSTATUS 21:32 → LDRO 22:40
DX: O99.89 Other specified diseases and conditions complicating pregnancy, childbirth and the puerperium (principal); R10.31 Right lower quadrant pain; Z3A.25 25 weeks gestation of pregnancy
CPT/HCPCS: OP

== ENCOUNTER 2019-04-22 11:56 | Emergency (ER) | payer MEDICAID ==
[~2019-04-22] VITALS: Ht 162.6 cm; Wt 75.3 kg
[~2019-04-22 11:56] MED LIST changes: +PRENATAL MVI
[2019-04-22 12:02] VITALS: TEMP 97.4
[2019-04-22 12:38] LABS: BASO % 0.2 % (0.0-2.0); EOS # 0.1 (0.0-0.7); EOS % 0.3 % (0-4.0); LYMPH # 2.4 (1.2-3.4); LYMPH % 13.7 % (20.0-51.0); MEAN CELL VOLUME 86 fl (80.0-100.0); MEAN CORPUSCULAR HEMOGLOBIN 29 pg (27.0-31.0); MEAN CORPUSCULAR HGB CONC 33 g/dl (33.0-37.0); MEAN PLATELET VOLUME 10.4 fl (7.4-10.4); MONO # 1.1 (0.1-0.6); MONO % 6.3 % (1.7-9.3); PLATELET COUNT 299 K/mm3 (130-400); RED BLOOD COUNT 4.16 M/mm3 (4.10-5.30); REDCELL DISTRIBUTION WIDTH-CV 12.4 % (11.5-14.5)
[2019-04-22 12:41] LABS: HEMATOCRIT 35.9 % (37.0-47.0)
[2019-04-22 12:48] LABS: ALBUMIN 4.3 gm/dL (3.5-5.0); BILIRUBIN,TOTAL 0.3 mg/dL (0.0-1.0); CALCIUM 9.1 mg/dL (8.4-10.2); CREATININE, serum 0.59 (0.52-1.25); POTASSIUM 3.4 mmol/L (3.4-5.0); TOTAL PROTEIN 7.8 gm/dL (6.4-8.2)
--- NOTE | 2019-04-22 13:23 | NUR ---
FHR strip reviewed by Dr Gamble.
[2019-04-22] MEDS ORDERED: PHENERGAN 25 TA25 MG PO (14:03)
[2019-04-22 15:43] LABS: COLLECTION METHOD CLEAN CATCH; PH 5 (5-8); SQUAMOUS EPITHELIAL 0-2 /hpf; URINE APPEARANCE Clear; URINE BACTERIA Rare /hpf; URINE BILIRUBIN Negative (NEGATIVE); URINE BLOOD Negative (NEGATIVE); URINE COLOR Yellow; URINE GLUCOSE Negative (NEGATIVE); URINE KETONE 1+ (NEGATIVE); URINE LEUKOCYTE ESTERASE Negative (NEGATIVE); URINE NITRATE Negative (NEGATIVE); URINE PROTEIN(semi-quant) Negative (NEGATIVE); URINE RBC 0-2 /hpf; URINE UROBILINOGEN Negative (NEGATIVE)
[2019-04-22] MEDS ORDERED: MACROBID 1100 MG/CAP PO (15:46)
[2019-04-22 16:22] VITALS: BP 119/71; PULSE 79
== END 2019-04-22 16:27 | disposition home or self-care (01) ==
LOC: COL.ER 11:56
PROVIDERS: Emergency Medicine
DX: O99.613 Diseases of the digestive system complicating pregnancy, third trimester (principal); K29.70 Gastritis, unspecified, without bleeding; Z3A.29 29 weeks gestation of pregnancy
CPT/HCPCS: J2550; J7030

== ENCOUNTER 2019-05-01 13:02 | Emergency (ER) | payer MEDICAID ==
[~2019-05-01] VITALS: Ht 167.6 cm; Wt 75.0 kg
[~2019-05-01 13:02] MED LIST changes: +MACROBID 1100 MG/CAP PO
[2019-05-01] MEDS ORDERED: PHENERGAN 25 TA25 MG PO (13:19)
--- NOTE | 2019-05-01 13:42 | NUR ---
Patient in ER for n/v/d. , 30wks gestation. Reports good movement. Denies vaginal bleeding, leaking of fluid, or contractions. Audible movement on monitor. FHR appropriate for gestation age. No uterine activity traced/palpated. Denies any concerns.
[2019-05-01 14:17] LABS: BASO % 0.2 % (0.0-2.0); EOS % 0.3 % (0-4.0); GRAN # 10.1 (1.4-6.5); GRAN % 81.1 % (42.2-75.2); HEMOGLOBIN 11.2 g/dl (12.5-16.0); LYMPH # 1.5 (1.2-3.4); LYMPH % 12.3 % (20.0-51.0); MEAN CELL VOLUME 86 fl (80.0-100.0); MEAN CORPUSCULAR HEMOGLOBIN 28 pg (27.0-31.0); MEAN CORPUSCULAR HGB CONC 33 g/dl (33.0-37.0); MEAN PLATELET VOLUME 10.4 fl (7.4-10.4); MONO # 0.7 (0.1-0.6); MONO % 5.5 % (1.7-9.3); PLATELET COUNT 255 K/mm3 (130-400); RED BLOOD COUNT 3.94 M/mm3 (4.10-5.30); REDCELL DISTRIBUTION WIDTH-CV 12.5 % (11.5-14.5)
[2019-05-01 14:24] LABS: HEMATOCRIT 33.9 % (37.0-47.0)
[2019-05-01 14:31] LABS: ALBUMIN 3.9 gm/dL (3.5-5.0); BILIRUBIN,TOTAL 0.4 mg/dL (0.0-1.0); C-REACTIVE PROTEIN 0.9 mg/dL (0.0-0.9); CREATININE, serum 0.5 (0.52-1.25); POTASSIUM 3.7 mmol/L (3.4-5.0); TOTAL PROTEIN 7.4 gm/dL (6.4-8.2)
[2019-05-01 15:20] LABS: COLLECTION METHOD CLEAN CATCH
[2019-05-01 15:25] LABS: MUCOUS Present /lpf; PH 6 (5-8); SQUAMOUS EPITHELIAL 0-2 /hpf; URINE APPEARANCE Clear; URINE BACTERIA Rare /hpf; URINE BILIRUBIN Negative (NEGATIVE); URINE BLOOD Negative (NEGATIVE); URINE COLOR Yellow; URINE GLUCOSE Negative (NEGATIVE); URINE KETONE Negative (NEGATIVE); URINE LEUKOCYTE ESTERASE Negative (NEGATIVE); URINE NITRATE Negative (NEGATIVE); URINE PROTEIN(semi-quant) Negative (NEGATIVE); URINE RBC 0-2 /hpf; URINE UROBILINOGEN Negative (NEGATIVE)
[2019-05-01] MEDS ORDERED: ZOFRAN ODT4 MG PO (15:48)
[2019-05-01 16:00] VITALS: BP 108/78; PULSE 78; TEMP 98.8
== END 2019-05-01 16:13 | disposition home or self-care (01) ==
LOC: COL.ER 13:02
PROVIDERS: Emergency Medicine
DX: O21.2 Late vomiting of pregnancy (principal); O26.893 Other specified pregnancy related conditions, third trimester; R19.7 Diarrhea, unspecified; Z3A.35 35 weeks gestation of pregnancy
CPT/HCPCS: J2550; J7030

== ENCOUNTER 2019-05-18 11:54 | Emergency (ER) | payer MEDICAID ==
[~2019-05-18] VITALS: Ht 165.1 cm; Wt 75.0 kg
[2019-05-18 12:00] VITALS: TEMP 98.7
[2019-05-18 12:23] LABS: BASO % 0.1 % (0.0-2.0); EOS # 0.2 (0.0-0.7); EOS % 1.2 % (0-4.0); GRAN # 10.7 (1.4-6.5); GRAN % 77.5 % (42.2-75.2); HEMOGLOBIN 11.9 g/dl (12.5-16.0); LYMPH % 14.3 % (20.0-51.0); MEAN CELL VOLUME 84 fl (80.0-100.0); MEAN CORPUSCULAR HEMOGLOBIN 27 pg (27.0-31.0); MEAN CORPUSCULAR HGB CONC 33 g/dl (33.0-37.0); MEAN PLATELET VOLUME 10.5 fl (7.4-10.4); MONO # 0.9 (0.1-0.6); MONO % 6.2 % (1.7-9.3); PLATELET COUNT 257 K/mm3 (130-400); RED BLOOD COUNT 4.36 M/mm3 (4.10-5.30); REDCELL DISTRIBUTION WIDTH-CV 12.9 % (11.5-14.5)
[2019-05-18 12:24] LABS: HEMATOCRIT 36.5 % (37.0-47.0)
[2019-05-18 12:34] LABS: ALBUMIN 4.3 gm/dL (3.5-5.0); BILIRUBIN,TOTAL 0.4 mg/dL (0.0-1.0); CALCIUM 9.5 mg/dL (8.4-10.2); CREATININE, serum 0.5 (0.52-1.25); POTASSIUM 3.7 mmol/L (3.4-5.0)
--- NOTE | 2019-05-18 14:01 | NUR ---
G2L1 at 32.5 weeks gestation in ED for N/V. Denies vaginal bleeding, LOF, regular ctx and reports GFM. FHR baseline 135. Moderate variability with accelerations.
[2019-05-18 14:34] VITALS: BP 104/59; PULSE 82
[2019-05-18] MEDS ORDERED: ZOFRAN ODT8 MG PO (14:50)
== END 2019-05-18 16:41 ==
LOC: COL.ER 11:54
PROVIDERS: Emergency Medicine
DX: R11.2 Nausea with vomiting, unspecified (principal)
CPT/HCPCS: J2405; J2550; J7030

== ENCOUNTER 2019-05-29 22:48 | Outpatient (CLI) | payer MEDICAID ==
[~2019-05-29] VITALS: Ht 165.1 cm; Wt 80.5 kg
[~2019-05-29 22:48] MED LIST changes: +ZOFRAN ODT8 MG PO
[2019-05-29 23:11] VITALS: BP 138/65; PULSE 84; TEMP 98
--- NOTE | 2019-05-29 23:27 | NUR ---
HAVING CONSTANT LOWER ABD PAIN APPROX 3 HOURS. RATES 01/01. WORKS [employer]I AT [employer] - HAS NOT LIFTED HEAVYY OBJECT OR HAD AN INJURY THAT SHE RECALLS, EFM ON.
[2019-05-29 23:56] LABS: COLLECTION METHOD CLEAN CATCH
--- NOTE | 2019-05-30 00:17 | NUR ---
SSAYS PAIN NOW IS NOT INTENSE WHEN FIRST STARTED THIS EVENING
[2019-05-30 00:35] LABS: MUCOUS Present /lpf; PH 6 (5-8); SQUAMOUS EPITHELIAL 0-2 /hpf; URINE APPEARANCE Hazy; URINE BACTERIA None Seen /hpf; URINE BILIRUBIN Negative (NEGATIVE); URINE BLOOD Negative (NEGATIVE); URINE COLOR Yellow; URINE GLUCOSE Negative (NEGATIVE); URINE KETONE Trace (NEGATIVE); URINE LEUKOCYTE ESTERASE Trace (NEGATIVE); URINE NITRATE Negative (NEGATIVE); URINE PROTEIN(semi-quant) Negative (NEGATIVE); URINE WBC 0-2 /hpf
--- NOTE | 2019-05-30 01:00 | NUR ---
IVF BOLUS BEGUN. LAB DRWN CBC CMP TYPE SCREEN.PT ASKS FOR NOTE TO BE OFF WORK. PLAN OF CARE DISCUSSED.NEEDS ASSIST TO BE UP FROM BEDD . SLOW SHUFFLING GAIT TO BR DUE TO ABD PAIN SHE SAYS 0200 SLEEPS AT INTERVALS. FOB HERE WITH ACTIVE 2 Y.O.ON PHOME WHEN NOT ASLEEP. SAYS PAIN IS UNCHANGED. 0315 DISCHARGE INSTR REVIEWED WITH PT AND FOB. INT DISCONTINUED. PT TO POV PER WC DUE TO PAIN.
[2019-05-30 01:29] LABS: BASO % 0.3 % (0.0-2.0); EOS # 0.1 (0.0-0.7); GRAN # 6.6 (1.4-6.5); GRAN % 65.7 % (42.2-75.2); LYMPH # 2.5 (1.2-3.4); LYMPH % 25.2 % (20.0-51.0); MEAN CELL VOLUME 83 fl (80.0-100.0); MEAN CORPUSCULAR HGB CONC 32 g/dl (33.0-37.0); MEAN PLATELET VOLUME 10.7 fl (7.4-10.4); MONO # 0.7 (0.1-0.6); MONO % 7.4 % (1.7-9.3); PLATELET COUNT 233 K/mm3 (130-400); RED BLOOD COUNT 3.62 M/mm3 (4.10-5.30); REDCELL DISTRIBUTION WIDTH-CV 13.2 % (11.5-14.5)
[2019-05-30 01:31] LABS: HEMATOCRIT 29.9 % (37.0-47.0); HEMOGLOBIN 9.7 g/dl (12.5-16.0); MEAN CORPUSCULAR HEMOGLOBIN 27 pg (27.0-31.0)
[2019-05-30 01:39] LABS: ALBUMIN 3.4 gm/dL (3.5-5.0); BILIRUBIN,TOTAL 0.3 mg/dL (0.0-1.0); CREATININE, serum 0.47 (0.52-1.25); POTASSIUM 3.2 mmol/L (3.4-5.0); TOTAL PROTEIN 6.6 gm/dL (6.4-8.2)
--- NOTE | 2019-05-30 03:00 | NUR ---
IV BOLUS 1000CC INFUSED.
--- NOTE | 2019-05-30 03:20 | NUR ---
VOIDS- FEELS BETTER AFTER,LESS PAIN
== END 2019-05-30 03:29 | disposition home or self-care (01) ==
LOC: LDRO 22:48 → LDR 05-30 01:44 → LDRO 05-30 03:29
PROVIDERS: Obstetrics & Gynecology
DX: O26.893 Other specified pregnancy related conditions, third trimester (principal); Z3A.34 34 weeks gestation of pregnancy
CPT/HCPCS: OP

== ENCOUNTER 2019-05-30 19:14 | Outpatient (CLI) | payer MEDICAID ==
[~2019-05-30] VITALS: Ht 165.1 cm; Wt 80.5 kg
--- NOTE | 2019-05-30 19:20 | NUR ---
HERE WITH C/O UPPER ABD PAIN NO NAUSEA SINCE 1430. UNSURE IF PAINIS INTERMITTENT OR CONSTANT. VAGUE ANSWERS TO QUESTIONS. GENEVIEVE LEAVES IMMEDITELY AFTER SHE CHANGES CLOTHES TO HOSP GOWN - SAYS HER 2 YO IS AT HOME SICK WITH THE PEOPLE THEY LIVE WITH AND IS SLEEPING SO MUST RETURN HOME TO STAY WIH HIM. KENNETH HAS TAKEN TYLENOL TODAY AND WARM BATH. - NO HELP WITH PAIN. SOCIAL AND PLEASANT DURING INTERVIEW- APPEARS IN NO ACUTE DISTRESS. HAD WAFFFLES AT 1500.SVE CLOSED THIC SOFT WAS AT 0300 TODAY WHEN WAS HERE FOR C/O LOWER ABD PAIN AND LABS,UA OBTAINED. EFM ON.
[2019-05-30 19:51] VITALS: BP 123/73; PULSE 85; TEMP 98.4
[2019-05-30 20:06] VITALS: BP 123/73; PULSE 85; TEMP 98.4
[2019-05-30 21:17] LABS: BASO % 0.2 % (0.0-2.0); EOS # 0.1 (0.0-0.7); GRAN # 5.6 (1.4-6.5); GRAN % 64.3 % (42.2-75.2); LYMPH # 2.2 (1.2-3.4); LYMPH % 25.2 % (20.0-51.0); MEAN CELL VOLUME 83 fl (80.0-100.0); MEAN CORPUSCULAR HGB CONC 32 g/dl (33.0-37.0); MEAN PLATELET VOLUME 10.4 fl (7.4-10.4); MONO # 0.8 (0.1-0.6); MONO % 8.7 % (1.7-9.3); PLATELET COUNT 218 K/mm3 (130-400); RED BLOOD COUNT 3.56 M/mm3 (4.10-5.30); REDCELL DISTRIBUTION WIDTH-CV 13.2 % (11.5-14.5)
[2019-05-30 21:19] LABS: HEMATOCRIT 29.5 % (37.0-47.0); HEMOGLOBIN 9.5 g/dl (12.5-16.0); MEAN CORPUSCULAR HEMOGLOBIN 27 pg (27.0-31.0)
[2019-05-30 21:40] LABS: ALBUMIN 3.3 gm/dL (3.5-5.0); BILIRUBIN,TOTAL 0.2 mg/dL (0.0-1.0); CALCIUM 8.5 mg/dL (8.4-10.2); CREATININE, serum 0.43 (0.52-1.25); POTASSIUM 3.3 mmol/L (3.4-5.0); TOTAL PROTEIN 6.4 gm/dL (6.4-8.2)
--- NOTE | 2019-05-30 22:36 | NUR ---
2235 HAS CALLED BOYFRIEND TO PICK HER UP BUT NOT CALLED BACK YET, WAITING IN LR 5 UNTIL RIDE COMES
== END 2019-05-30 22:20 | disposition home or self-care (01) ==
LOC: LDRO 19:14 → LDR 19:20 → LDRO 22:20
PROVIDERS: Obstetrics & Gynecology
DX: O26.893 Other specified pregnancy related conditions, third trimester (principal); Z3A.34 34 weeks gestation of pregnancy
CPT/HCPCS: OP

== ENCOUNTER 2019-05-31 23:39 | Outpatient (CLI) | payer MEDICAID ==
[~2019-05-31] VITALS: Ht 162.6 cm; Wt 78.2 kg
[2019-05-31 23:40] VITALS: BP 123/66; PULSE 86; TEMP 98.8
--- NOTE | 2019-06-01 00:10 | NUR ---
Patient to room via wheelchair. Per Karmen Rosenthal RN patient needed assistance out of wheelchair and shuffled gait to toilet. Patient able to lift own legs and take clothing off to put gown on and patient ambulates with gait less shuffled and independently to bed. FHR and contraction monitors placed and explained. Patient states she is having right leg numbness and "now feels like the left left is going numb." Patient also states she is having trouble emptying bladder and has some pain with urination. Patient states "I'm having pain in my kidney area" and patient points to left flank area. Patient denies any leaking of fluid or vaginal bleeding. States baby is active. Assessment completed.
--- NOTE | 2019-06-01 00:29 | NUR ---
SVE CLOSED/THICK/SOFT.
--- NOTE | 2019-06-01 00:47 | NUR ---
Patient discharge instructions reviewed with her. Verbalizes understanding. patient ambulates to bathroom with normal gait and states she is feeling better. ambulates off unit.
== END 2019-06-01 00:50 | disposition home or self-care (01) ==
LOC: LDRO 23:39
DX: O26.893 Other specified pregnancy related conditions, third trimester (principal); M79.89 Other specified soft tissue disorders; Z3A.34 34 weeks gestation of pregnancy

== ENCOUNTER 2019-06-06 14:45 | Emergency (ER) | payer MEDICAID ==
[~2019-06-06] VITALS: Ht 165.1 cm; Wt 78.2 kg
[2019-06-06 14:55] VITALS: TEMP 98.4
--- NOTE | 2019-06-06 15:15 | NUR ---
This RN to ER to obtain FHR strip. Patient in ER for vomiting, dizziness, malaise, and heartburn. , 36wks gestation. Patient denies any symptoms or complaints. Reports good movement. Denies vaginal bleeding, leaking of fluid, or regular/painful contractions. FHR 130s, moderate variability, accelerations noted, audible movement. Irritability noted on toco. Abdomen palpates soft. Encouraged to contact OB provider with any concerns, including decreased movement, vaginal bleeding, leaking of fluid or contractions. Verbalized understanding.
[2019-06-06 15:28] LABS: BASO % 0.2 % (0.0-2.0); EOS # 0.1 (0.0-0.7); EOS % 1.1 % (0-4.0); GRAN # 6.2 (1.4-6.5); GRAN % 71.9 % (42.2-75.2); HEMOGLOBIN 10.6 g/dl (12.5-16.0); LYMPH # 1.6 (1.2-3.4); MEAN CELL VOLUME 83 fl (80.0-100.0); MEAN CORPUSCULAR HEMOGLOBIN 26 pg (27.0-31.0); MEAN CORPUSCULAR HGB CONC 32 g/dl (33.0-37.0); MEAN PLATELET VOLUME 10.8 fl (7.4-10.4); MONO # 0.6 (0.1-0.6); MONO % 7.2 % (1.7-9.3); PLATELET COUNT 239 K/mm3 (130-400); RED BLOOD COUNT 4.01 M/mm3 (4.10-5.30); REDCELL DISTRIBUTION WIDTH-CV 13.5 % (11.5-14.5)
[2019-06-06 15:32] LABS: HEMATOCRIT 33.1 % (37.0-47.0)
[2019-06-06 15:41] LABS: ALBUMIN 3.7 gm/dL (3.5-5.0); BILIRUBIN,TOTAL 0.3 mg/dL (0.0-1.0); CALCIUM 8.7 mg/dL (8.4-10.2); CREATININE, serum 0.4 (0.52-1.25); POTASSIUM 3.5 mmol/L (3.4-5.0); TOTAL PROTEIN 7.1 gm/dL (6.4-8.2)
[2019-06-06] MEDS ORDERED: PEPCID 20MG TAB20 MG PO (16:17)
[2019-06-06 16:43] VITALS: BP 126/68; PULSE 74
== END 2019-06-06 16:49 | disposition home or self-care (01) ==
LOC: COL.ER 14:45
PROVIDERS: Emergency Medicine
DX: O21.2 Late vomiting of pregnancy (principal); O99.613 Diseases of the digestive system complicating pregnancy, third trimester; K21.9 Gastro-esophageal reflux disease without esophagitis; Z3A.36 36 weeks gestation of pregnancy; Z88.6 Allergy status to analgesic agent
CPT/HCPCS: J2405; J2550; J7030

== ENCOUNTER 2019-06-30 13:32 | Inpatient (IN) | payer MEDICAID ==
[2019-06-30] VITALS (32 sets, daily range): BP systolic 114–157; BP diastolic 56–105; PULSE 73–112; TEMP 98–98.4
[~2019-06-30] VITALS: Ht 162.6 cm; Wt 80.5 kg
[~2019-06-30 13:32] MED LIST changes: +AMOXICILLIN 50500 MG PO; +PEPCID 20MG TAB20 MG PO
--- NOTE | 2019-06-30 13:40 | NUR ---
Pt and boyfriend present to unit from ER. Pt changed into gown, EFM explained and placed. Pt states she is having contractions every 3 minutes, denies vaginal bleeding or leaking of fluid, reports good movement. Pt states her membranes were stripped in the office and she has been having contractions since, now they are getting closer together and more painful. Assessment complete, vitals taken. SVE /-3. Dr. Staton notified of pt arrival. Dejuan Anthony RN to assume care.
[2019-06-30 17:11] LABS: BASO % 0.2 % (0.0-2.0); EOS # 0.1 (0.0-0.7); EOS % 0.8 % (0-4.0); GRAN # 11.4 (1.4-6.5); GRAN % 80.2 % (42.2-75.2); HEMOGLOBIN 10.5 g/dl (12.5-16.0); LYMPH # 1.8 (1.2-3.4); LYMPH % 12.5 % (20.0-51.0); MEAN CELL VOLUME 78 fl (80.0-100.0); MEAN CORPUSCULAR HEMOGLOBIN 25 pg (27.0-31.0); MEAN CORPUSCULAR HGB CONC 32 g/dl (33.0-37.0); MEAN PLATELET VOLUME 11.2 fl (7.4-10.4); MONO # 0.8 (0.1-0.6); MONO % 5.8 % (1.7-9.3); PLATELET COUNT 243 K/mm3 (130-400); RED BLOOD COUNT 4.22 M/mm3 (4.10-5.30); REDCELL DISTRIBUTION WIDTH-CV 14.6 % (11.5-14.5)
[2019-06-30 17:21] LABS: HEMATOCRIT 33.1 % (37.0-47.0)
[2019-06-30 18:16] LABS: TRICYCLIC ANTIDEPRESS URINE NEGATIVE
--- NOTE | 2019-06-30 18:30 | NUR ---
Dr. Staton at bedside. SVE /-3. AROM performed at this time. Small amount of clear fluid noted. Pt repositioned to wedge left for comfort. Significant other supportive at bedside. Plan of care reviewed.
--- NOTE | 2019-06-30 20:15 | NUR ---
Pt complaining of more pain and pressure. RN to bedside for SVE. 6/70/-3. Pitocin increased to 6 mU/min.
--- NOTE | 2019-06-30 20:50 | NUR ---
Recurrent early decelerations down to 120 bpm noted with contractions. No accelerations. Pt repositioned to wedge left.
--- NOTE | 2019-06-30 21:15 | NUR ---
Recurrent variable decelerations down to 100 bpm noted with contractions with spontaneous return to baseline. SVE 6/90/-3. Pt repositioned to right lateral. 2124 - Early/variable decelerations down to 100 bpm continue. Pitocin decreased to 3 mu/min.
--- NOTE | 2019-06-30 21:50 | NUR ---
Recurrent variable decelerations down to 95 bpm noted with contractions. Spontaneous return to baseline of 125 bpm after about 50 seconds. Pt repositioned to left lateral position. Second bag of Lactated Ringers bolus infusing. Pitocin off. SVE 6/90/-3. O2 on.
--- NOTE | 2019-06-30 22:25 | NUR ---
[id number] Variable decelerations down to 100 bpm with contractions. Accelerations present. Telephone orders from Dr. Staton to perform SVE now. /
--- NOTE | 2019-06-30 22:50 | NUR ---
Dr. Staton at bedside discussing plan of care. IUPC placed at this time. SVE /-2. FSE placed as well. FSE not tracing well on strip, continue to use external US.
--- NOTE | 2019-06-30 23:15 | NUR ---
Intermittent variable decelerations down to 100 bpm with spontaneous return to baseline. Verbal orders from Dr. Staton to start amnioinfusion. Amnioinfusion set up and infusing at 300 mL/hr for 30 minutes per protocol. Resting tone prior to start 20 mmHg.
--- NOTE | 2019-06-30 23:40 | NUR ---
Pt complaining of more pain and rectal pressure. SVE /-2. Peritowel with small amount of fluid noted. IUPC resting tone remains 20 mmHg. 2346 - Pt not coping with labor and contractions well, wanting to bear down and push with contractions. Anesthesia called to bedside. Dr. Staton called to bedside.
--- NOTE | 2019-06-30 23:56 | NUR ---
2350 - Dr. Staton at bedside for delivery. Room set up for delivery. Pt positioned into footplates. Reviewed pushing techniques with patient. Amnioinfusion off per Dr. Staton. Freeman catheter out. 25 mL 2351 - Initial push at this time. Pt pushing well with contractions. 2354 - IUPC out per Dr. Staton. Nursery RN at bedside. 2355 - Spontaneous vaginal delivery of viable boy. Infant placed on mothers abdomen. Care of infant assumed to BRYAN Stein. Cord clamped x [address] Staton, cut by FOB. 0000 - Spontaneous delivery of intact placenta. Pitocin infusing at 333 mL/hr per protocol. Fundus firm and down 1 from umbilicus. 1st degree perineal laceration repaired by Dr. Staton. 0015 - Pericare provided. Ice pack to perineum. New chux beneath patient. Pt repositioned in bed for comfort. recovery started.
[2019-07-01] VITALS (11 sets, daily range): BP systolic 101–161; BP diastolic 52–76; PULSE 87–106; TEMP 97.6–99.1
--- NOTE | 2019-07-01 02:20 | NUR ---
Pt able to lift and hold each leg off of bed for 5 seconds. Repositioned to sitting on edge of bed. Epidural catheter removed. Tip smooth, blue, and intact. Pt able to ambulate to bathroom independently. Pt able to void 900 mL. Pericare explained and provided. Mesh panties and peripad applied. New gown on. Pt transferred to room 215 by wheelchair with belongings.
--- NOTE | 2019-07-01 16:32 | NUR ---
supervisor park workers attempted to see patient twice. On the second visit, patient was sleeping and worker introduced self to father of the baby. Father requested worker return when patient is awake. Worker will plan to see patient on 07/02/2019 in the am. Worker collaborated with nurse regarding the above information.
[2019-07-02 06:44] VITALS: BP 143/85; PULSE 85; TEMP 97.9
[2019-07-02] MEDS ORDERED: PERCOCET 325 MG1 TA2 PO (09:00)
[2019-07-02] MEDS ORDERED: IBU600 MG PO (09:00)
--- NOTE | 2019-07-02 11:24 | NUR ---
BEULAH responded to the OB for a manager social referral for the patient due to to history of mental health concerns and history of drug use. BEULAH contacted the patient's nurse and she reports no concerns. BEULAH met with Dr. Salazar and she expesses no concerns. BEULAH met with the patient and the FOB Marlo. The patient has a car seat, crib and other baby supplies needed. The patient is signed up with [facility]. The patient has a two year old and is currently going through a divorce with the rowan father. As soon as custody is worked out the divorce can be finalized. Marlo is supportive of both children. The patient and Marlo plan to get after the divorce is finalized. The patient has received talk therapy and was on medications in the past. But as she has gone through periods with no insurance she does not have an established therapist or on medication management at this time. The patient does have plans to begin going to a therapist again. The patient will likely go to [place] since she has been there in the past. BEULAH addressed history of drug usage. The patient states it was marijuana and she no longer partakes. BEULAH provided the [facility] Resource Guide. The patient is familar with the area resources. BEULAH collaborated the above information with the patient's nurse.
--- NOTE | 2019-07-03 08:39 | NUR ---
The baby's cord blood came back negative.
== END 2019-07-02 13:40 | disposition home or self-care (01) | DRG 807 ==
LOC: LDRO 13:32 → LDR 13:33 → LDRO 16:54 → OB 16:55 → LDR 16:55 → OB 07-01 02:30
PROVIDERS: ADMIT Obstetrics & Gynecology
PROC: 10E0XZZ Delivery of Products of Conception, External Approach (ICD-10-PCS; principal; 2019-06-30)
PROC: 0KQM0ZZ Repair Perineum Muscle, Open Approach (ICD-10-PCS; 2019-06-30)
PROC: 10907ZC Drainage of Amniotic Fluid, Therapeutic from Products of Conception, Via Natural or Artificial Opening (ICD-10-PCS; 2019-06-30)
DX: O99.344 Other mental disorders complicating childbirth (principal); Z37.0 Single live birth; O99.02 Anemia complicating childbirth; F41.9 Anxiety disorder, unspecified; O99.52 Diseases of the respiratory system complicating childbirth; Z3A.38 38 weeks gestation of pregnancy; J45.20 Mild intermittent asthma, uncomplicated; F31.9 Bipolar disorder, unspecified; M06.9 Rheumatoid arthritis, unspecified; F43.10 Post-traumatic stress disorder, unspecified
CPT/HCPCS: J2405; J2590; J2795; J7030; J7120

== ENCOUNTER 2019-07-20 16:37 | Emergency (ER) | payer MEDICAID ==
[~2019-07-20] VITALS: Ht 162.6 cm; Wt 77.3 kg
[~2019-07-20 16:37] MED LIST changes: +PERCOCET 325 MG1 TA2 PO
[2019-07-20 16:44] VITALS: TEMP 97.8
[2019-07-20 17:17] LABS: COLLECTION METHOD CLEAN CATCH
[2019-07-20 17:20] LABS: BASO % 0.3 % (0.0-2.0); EOS # 0.1 (0.0-0.7); EOS % 2.2 % (0-4.0); GRAN # 3.3 (1.4-6.5); GRAN % 50.2 % (42.2-75.2); HEMATOCRIT 37.5 % (37.0-47.0); HEMOGLOBIN 11.6 g/dl (12.5-16.0); LYMPH # 2.5 (1.2-3.4); LYMPH % 38.9 % (20.0-51.0); MEAN CELL VOLUME 78 fl (80.0-100.0); MEAN CORPUSCULAR HEMOGLOBIN 24 pg (27.0-31.0); MEAN CORPUSCULAR HGB CONC 31 g/dl (33.0-37.0); MEAN PLATELET VOLUME 9.5 fl (7.4-10.4); MONO # 0.5 (0.1-0.6); MONO % 8.2 % (1.7-9.3); PLATELET COUNT 387 K/mm3 (130-400); RED BLOOD COUNT 4.83 M/mm3 (4.10-5.30); REDCELL DISTRIBUTION WIDTH-CV 14.7 % (11.5-14.5)
[2019-07-20 17:24] LABS: MUCOUS Present /lpf; PH 6 (5-8); SQUAMOUS EPITHELIAL 0-2 /hpf; URINE APPEARANCE Clear; URINE BACTERIA None Seen /hpf; URINE BILIRUBIN Negative (NEGATIVE); URINE BLOOD 2+ (NEGATIVE); URINE COLOR Yellow; URINE GLUCOSE Negative (NEGATIVE); URINE KETONE Negative (NEGATIVE); URINE LEUKOCYTE ESTERASE Negative (NEGATIVE); URINE NITRATE Negative (NEGATIVE); URINE PROTEIN(semi-quant) Negative (NEGATIVE); URINE RBC >50 /hpf; URINE UROBILINOGEN Negative (NEGATIVE)
[2019-07-20 18:05] VITALS: BP 129/65; PULSE 71
== END 2019-07-20 18:23 | disposition home or self-care (01) ==
LOC: COL.ER 16:37
PROVIDERS: Family Medicine
DX: O72.1 Other immediate postpartum hemorrhage (principal); F17.210 Nicotine dependence, cigarettes, uncomplicated
CPT/HCPCS: J2210

== ENCOUNTER 2019-09-19 10:41 | Emergency (ER) | payer MEDICAID ==
[~2019-09-19] VITALS: Ht 165.1 cm; Wt 75.0 kg
[2019-09-19 10:49] VITALS: BP 128/76; TEMP 98.5
[2019-09-19 11:53] VITALS: PULSE 78
== END 2019-09-19 11:53 | disposition home or self-care (01) ==
LOC: COL.ER 10:41
DX: U07.1 COVID-19 (principal); J45.909 Unspecified asthma, uncomplicated; R53.81 Other malaise; R53.83 Other fatigue; F17.210 Nicotine dependence, cigarettes, uncomplicated

== ENCOUNTER 2019-09-21 12:23 | Emergency (ER) | payer MEDICAID ==
[2019-09-21 12:33] VITALS: TEMP 98.1
[2019-09-21 14:44] VITALS: BP 124/91; PULSE 67
== END 2019-09-21 14:57 | disposition home or self-care (01) ==
LOC: COL.ER 12:26
DX: U07.1 COVID-19 (principal); R53.1 Weakness